=== PATIENT | male | born 1960 | race Caucasian/White ===

== ENCOUNTER 2022-06-16 16:16 | Emergency (ER) | payer OTHER ==
[~2022-06-16] VITALS: Ht 167.6 cm; Wt 81.7 kg
[~2022-06-16 16:16] MED LIST: Kristalose20 GM PO; NAPR550 PO
== END 2022-06-16 17:04 | disposition home or self-care (01) ==
LOC: ER 16:16
DX: M79.671 Pain in right foot (principal); I10 Essential (primary) hypertension; W22.8XXA Striking against or struck by other objects, initial encounter; Z79.899 Other long term (current) drug therapy; Z87.891 Personal history of nicotine dependence
CPT/HCPCS: 73630

== ENCOUNTER 2022-08-15 19:00 | Inpatient (IN) | payer OTHER ==
[~2022-08-15] VITALS: Ht 167.6 cm; Wt 86.2 kg
[2022-08-15 20:02] LABS: Influenza A, PCR NEGATIVE (NEGATIVE); Influenza B, PCR NEGATIVE (NEGATIVE); Resp Syncytial Virus, PCR NEGATIVE (NEGATIVE); SARS-Cov-2 (COVID-19) PCR, MMC NEGATIVE (NEGATIVE)
[2022-08-15 21:19] LABS: BASOPHILS ABSOLUTE AUTO 0.05 K/mm3 (0.00-0.23); BASOPHILS PERCENT AUTO 0 % (0-2); EOSINOPHILS ABSOLUTE AUTO 0.01 K/mm3 (0.00-0.68); EOSINOPHILS PERCENT AUTO 0 % (0-6); Hematocrit 48.1 % (37.0-53.0); Hemoglobin 16.2 g/dL (13.5-17.5); IMMATURE GRAN ABSOLUTE AUTO 0.06 K/mm3 (0.00-0.10); IMMATURE GRAN PERCENT AUTO 0 % (0-1); LYMPHOCYTES ABSOLUTE AUTO 1.38 K/mm3 (0.84-5.20); LYMPHOCYTES PERCENT AUTO 7 % (21-46); MONOCYTES ABSOLUTE AUTO 1.61 K/mm3 (0.16-1.47); MONOCYTES PERCENT AUTO 8 % (4-13); Mean Corpuscular HGB Conc 33.7 g/dL (31.5-36.5); Mean Corpuscular Volume 83 fL (80-100); Mean Platelet Volume 8.6 fL (9.1-12.4); NEUTROPHILS ABSOLUTE AUTO 17.17 K/mm3 (1.96-9.15); NEUTROPHILS PERCENT AUTO 85 % (41-73); Platelet Count 210 K/mm3 (150-400); RDW Coefficient Variation 13.1 % (11.7-14.2); Red Blood Cell Count 5.78 M/mm3 (4.30-5.90); White Blood Cell Count 20.28 K/mm3 (4.00-11.30)
[2022-08-15 21:38] LABS: Albumin, Blood 3.4 g/dL (3.4-5.0); Albumin/Globulin Ratio 0.9 (0.8-1.8); Bun/Creatinine Ratio 10.7 (12.0-20.0); Calcium, Blood 8.9 mg/dL (8.5-10.1); Creatinine, Blood 1.12 mg/dL (0.60-1.20); Globulin, Blood 3.9 g/dL (2.2-4.0); Potassium, Blood 3.6 mmol/L (3.5-5.5); Total Protein, Blood 7.3 g/dL (6.4-8.2)
[2022-08-15 22:41] LABS: Source, Urine Clean Catch
[2022-08-15 22:49] LABS: Appearance, Urine Clear (Clear); Bilirubin, Urine Neg (Neg); Blood, Urine Neg (Neg); Color, Urine Yellow (P-Yellow); Glucose Qualitative, Urine Neg (Neg); Ketones, Urine Neg (Neg); Leukocyte Esterase, Urine Neg (Neg); Nitrite, Urine Neg (Neg); Protein, Urine 1+ (Neg); Urobilinogen, Urine NORM (Normal)
[2022-08-16 01:25] VITALS: BP 138/69
--- NOTE | 2022-08-16 02:52 | NUR ---
08/16/22 0125 Patient was received from ED via stretcher to room 362. Patient is pleasant and alert and oriented x4. Patient complains mostly of lower back pain at this time. Pain to rt leg in minimal. Patient medicated with tylenol 650 mg with moderate relief. Pt has redness on front and side of rt daley with redness extending in streaks up to top of thigh. Note pictures in chart. Pt has rounded, sl firm abdomen with bowel tones faint but present. Pt had diarrhea last night to this am. Pt denies nausia states feels hungry but doesnt want to eat until breakfast. Patient voided in urinal. Pt receiving fluids. Pt has been oriented to is room and call light is in reach. WAiting for Tele monitor to be placed.
[2022-08-16 05:25] VITALS: BP 129/77
[2022-08-16 05:45] LABS: BASOPHILS ABSOLUTE AUTO 0.03 K/mm3 (0.00-0.23); BASOPHILS PERCENT AUTO 0 % (0-2); EOSINOPHILS ABSOLUTE AUTO 0.03 K/mm3 (0.00-0.68); EOSINOPHILS PERCENT AUTO 0 % (0-6); Hematocrit 44.2 % (37.0-53.0); Hemoglobin 15.2 g/dL (13.5-17.5); IMMATURE GRAN ABSOLUTE AUTO 0.06 K/mm3 (0.00-0.10); IMMATURE GRAN PERCENT AUTO 0 % (0-1); LYMPHOCYTES ABSOLUTE AUTO 1.35 K/mm3 (0.84-5.20); LYMPHOCYTES PERCENT AUTO 10 % (21-46); MONOCYTES ABSOLUTE AUTO 1.33 K/mm3 (0.16-1.47); MONOCYTES PERCENT AUTO 10 % (4-13); Mean Corpuscular HGB 28.8 pg (26.0-34.0); Mean Corpuscular HGB Conc 34.4 g/dL (31.5-36.5); Mean Corpuscular Volume 84 fL (80-100); Mean Platelet Volume 9.1 fL (9.1-12.4); NEUTROPHILS ABSOLUTE AUTO 10.83 K/mm3 (1.96-9.15); NEUTROPHILS PERCENT AUTO 80 % (41-73); Platelet Count 174 K/mm3 (150-400); RDW Coefficient Variation 13.1 % (11.7-14.2); RDW Standard Deviation 40.1 fL (35.1-46.3); Red Blood Cell Count 5.27 M/mm3 (4.30-5.90); White Blood Cell Count 13.63 K/mm3 (4.00-11.30)
--- NOTE | 2022-08-16 05:58 | NUR ---
Rn summary: Patient has been resting quietly. IV fluids continue. Pt voids in urinal. Plan for rt leg venous ultrasound for poss DVT. Call light in jreach. Continue to monitor.
[2022-08-16 06:19] LABS: Albumin, Blood 2.9 g/dL (3.4-5.0); Albumin/Globulin Ratio 0.8 (0.8-1.8); Bilirubin, Total 1.6 mg/dL (0.1-1.0); Bun/Creatinine Ratio 10.2 (12.0-20.0); Calcium, Blood 8.4 mg/dL (8.5-10.1); Creatinine, Blood 0.98 mg/dL (0.60-1.20); Globulin, Blood 3.6 g/dL (2.2-4.0); Potassium, Blood 3.3 mmol/L (3.5-5.5); Total Protein, Blood 6.5 g/dL (6.4-8.2)
[2022-08-16 08:16] VITALS: BP 124/75
[2022-08-16 15:52] VITALS: BP 129/74
--- NOTE | 2022-08-16 18:59 | NUR ---
SHIFT SUMMARY: PT IS A 62 YEAR OLD MALE A&OX4 ADMITTED ON 08/16/22 FOR CELLULITIS OF HIS R LOWER EXTREMITY. PT IS INDEPENDENT WITH AMUBULATION, BUT WILL USE BEDSIDE URINAL. HE C/O CHRONIC LOWER BACK PAIN. HAS AN IV DOSE OF TRAMADOL EARLIER TODAY AND PT RESPONDED WITH 0/10 PAIN AND STATED THAT HE FELT IF HE WAS FLOATING. 1800 DOSE OFFERED, PT DENIED. PAIN RELIEVED WITH AMBULATION AND HOT SHOWER. PT IS IN BED RESTING AT THIS TIME, CALL LIGHT IN REACH.
[2022-08-17 04:14] VITALS: BP 145/79
--- NOTE | 2022-08-17 04:16 | NUR ---
SHIFT ANGELINA, PT RESTING IN BED, MARKED RED AREA TO LEG WITH CELLULITUS. PER PT AND DAY RN REDNESS BETTER. PT GIVEN TORIDAL FOR PAIN AND PT SAYING HE HARDLY HAVING ANY PAIN AT THIS TIME. PT GIVEN A SANDWITCH BEFORE BED AND PT SEEMING TO SLEEP WELL THIS NIGHT. CALL LIGHT I9N REACH.
[2022-08-17 04:47] LABS: Hematocrit 46.6 % (37.0-53.0); Hemoglobin 15.7 g/dL (13.5-17.5); Mean Corpuscular HGB 28.5 pg (26.0-34.0); Mean Corpuscular HGB Conc 33.7 g/dL (31.5-36.5); Mean Corpuscular Volume 85 fL (80-100); Mean Platelet Volume 8.9 fL (9.1-12.4); Platelet Count 172 K/mm3 (150-400); RDW Coefficient Variation 13.1 % (11.7-14.2); RDW Standard Deviation 40.7 fL (35.1-46.3); White Blood Cell Count 10.99 K/mm3 (4.00-11.30)
[2022-08-17 05:13] LABS: Albumin, Blood 2.9 g/dL (3.4-5.0); Albumin/Globulin Ratio 0.7 (0.8-1.8); Bilirubin, Total 1.1 mg/dL (0.1-1.0); Bun/Creatinine Ratio 14.2 (12.0-20.0); Calcium, Blood 8.8 mg/dL (8.5-10.1); Creatinine, Blood 0.92 mg/dL (0.60-1.20); Magnesium, Blood 2.2 mg/dL (1.6-2.4); Potassium, Blood 3.6 mmol/L (3.5-5.5); Total Protein, Blood 6.9 g/dL (6.4-8.2)
[2022-08-17 07:42] VITALS: BP 144/86
--- NOTE | 2022-08-17 10:03 | NUR ---
GI PANEL CANCELLED PER UNIT PROTOCOL- PT HAS HAD NO LOOSE STOOLS SINCE ADMIT. STOOL THIS MORNING WAS SOFT AND FORMED, DOES NOT MEET CRITERIA FOR STOOL SAMPLE. CANCELLED ORDER PER PROTOCOL.
[2022-08-17 15:37] VITALS: BP 129/75
--- NOTE | 2022-08-17 17:30 | NUR ---
SHIFT SUMMARY: PT IS A 62 YR OLD MALE A&O X4, CONTINUING IV ANTIBIOTIC THERAPY FOR RLE CELLULITIS. REDNESS IMPROVED FROM YESTERDAY 08/16. PT DENIES PAIN IN THAT AREA AND AMBULATING OFTEN FOR PAIN RELIEF FOR CHRONIC LOWER BACK PAIN. TELE D/C'D TODAY IT WAS NO LONGER INDICATED. PLAN IS TO D/C TOMORROW 08/18. PT REMAINS PLEASANT, CALLS APPROPRIATELY, AND HE IS RESTING IN BED AT THIS TIME. MOVES INDEPENDENTLY IN HIS ROOM AND WILL GO ON [place] IN THE HALLWAY.
[2022-08-17 19:45] VITALS: BP 140/75
--- NOTE | 2022-08-18 03:41 | NUR ---
SHIFT SUMMERY, PT WENT TO SLEEP FAILY EARLY TONIGHT. PT APPEARS TO BE COMFORTABLE. PT AWKE EASILY WHEN 0000 MEDS WERE GIVEN. PT THEN QUITE QUICKLY FELL BACK TO SLEEP, CALL LIGHT IN REACH.
[2022-08-18 05:12] VITALS: BP 129/83
[2022-08-18 07:18] VITALS: BP 120/77
[2022-08-18] MEDS ORDERED: VISBIOME 112.51 EACH PO (11:38)
[2022-08-18] MEDS ORDERED: CEPH500 PO (11:39)
--- NOTE | 2022-08-18 11:51 | NUR ---
DISCHARGE NOTE- PT WAS GIVEN VERBAL AND WRITTEN DISCHARGE INSTRUCTIONS AND ACKNOWLEDGED UNDERSTANDING OF THEM. WATER REGULATOR AND VALVE REPAIRER KECIA DC'D THE IV PRIOR TO DISCHARGE. PT FAMILY AT THE BEDSIDE AT THE TIME OF DISCHARGE. MEDS FAXED TO [facility] PER THE PT REQUEST HIS PHARMACY ([facility]) IS NOT OPEN ON SUNDAYS. PT WAS ALREADY DRESSED IN HOME CLOTHING AT THE TIME OF DISCHARGE TEACHING. PT WAS ESCORTED OUT VIA WC BY WATER REGULATOR AND VALVE REPAIRER KECIA, NO S&S OF DISTRESS AT THE TME OF DISCHARGE.
== END 2022-08-18 11:58 | disposition home or self-care (01) | DRG 872 ==
LOC: ER 19:00 → MEDS 08-16 01:12
PROVIDERS: Internal Medicine; Student in an Organized Health Care Education/Training Program; ADMIT Internal Medicine
DX: A41.9 Sepsis, unspecified organism (principal); L03.115 Cellulitis of right lower limb; K76.0 Fatty (change of) liver, not elsewhere classified; K52.9 Noninfective gastroenteritis and colitis, unspecified; F17.210 Nicotine dependence, cigarettes, uncomplicated; F10.90 Alcohol use, unspecified, uncomplicated; E87.6 Hypokalemia; M79.604 Pain in right leg; Z20.822 Contact with and (suspected) exposure to COVID-19; Z88.0 Allergy status to penicillin; Z88.5 Allergy status to narcotic agent
CPT/HCPCS: 0241U; 36415; 74177; 80053; 83605; 83690; 83735; 83880; 85025; 85027; 87040; 93971; 96361; 96365-59; 96366; 96375; 99285-25; A9270; J0690; J1650; J1885; J3370; J7030; J7050; Q9967

== ENCOUNTER → 2022-10-07 | Outpatient (CLI) | payer OTHER ==
[~2022-10-07] MED LIST changes: +CEPH500 PO; +VISBIOME 112.51 EACH PO
[2022-10-07 08:22] LABS: Source, Urine Clean Catch
[2022-10-07 12:46] LABS: Appearance, Urine Turbid (Clear); Bilirubin, Urine Neg (Neg); Blood, Urine Neg (Neg); Color, Urine Yellow (P-Yellow); Glucose Qualitative, Urine Neg (Neg); Ketones, Urine Neg (Neg); Leukocyte Esterase, Urine Neg (Neg); Nitrite, Urine Neg (Neg); Protein, Urine 1+ (Neg); Specific Gravity, Urine 1.025 (1.003-1.022); Urobilinogen, Urine NORM (Normal)
[2022-10-07 14:05] LABS: Amorphous Heavy (0-Heavy); Bacteria Not Seen /hpf; Mucus Light (0-Heavy); Red Blood Cells, Urine Not Seen /hpf (0-2); Squamous Epithelial Cells Rare /hpf (Few); White Blood Cells, Urine Not Seen /hpf (0-5)
== END | disposition home or self-care (01) ==
LOC: LAB 06:30 → LAB SHORT 06:30
PROVIDERS: Nurse Practitioner Family
DX: Z00.00 Encounter for general adult medical examination without abnormal findings (principal)
CPT/HCPCS: 81001

== ENCOUNTER 2024-07-22 17:19 | Emergency (ER) | payer OTHER ==
[~2024-07-22] VITALS: Ht 167.6 cm; Wt 80.7 kg
[2024-07-22 18:00] LABS: BASOPHILS ABSOLUTE AUTO 0.04 K/mm3 (0.00-0.23); BASOPHILS PERCENT AUTO 0 % (0-2); EOSINOPHILS ABSOLUTE AUTO 0.28 K/mm3 (0.00-0.68); EOSINOPHILS PERCENT AUTO 3 % (0-6); Hematocrit 45.4 % (37.0-53.0); Hemoglobin 15.4 g/dL (13.5-17.5); IMMATURE GRAN ABSOLUTE AUTO 0.03 K/mm3 (0.00-0.10); IMMATURE GRAN PERCENT AUTO 0 % (0-1); LYMPHOCYTES ABSOLUTE AUTO 1.97 K/mm3 (0.84-5.20); LYMPHOCYTES PERCENT AUTO 20 % (21-46); MONOCYTES ABSOLUTE AUTO 0.96 K/mm3 (0.16-1.47); MONOCYTES PERCENT AUTO 10 % (4-13); Mean Corpuscular HGB 28.8 pg (26.0-34.0); Mean Corpuscular HGB Conc 33.9 g/dL (31.5-36.5); Mean Corpuscular Volume 85 fL (80-100); Mean Platelet Volume 8.5 fL (9.1-12.4); NEUTROPHILS ABSOLUTE AUTO 6.43 K/mm3 (1.96-9.15); NEUTROPHILS PERCENT AUTO 66 % (41-73); Platelet Count 202 K/mm3 (150-400); RDW Coefficient Variation 12.9 % (11.7-14.2); Red Blood Cell Count 5.34 M/mm3 (4.30-5.90); White Blood Cell Count 9.71 K/mm3 (4.00-11.30)
[2024-07-22 18:20] LABS: Albumin, Blood 3.7 g/dL (3.4-5.0); Albumin/Globulin Ratio 1.2 (0.8-1.8); Bilirubin, Total 0.7 mg/dL (0.1-1.0); Bun/Creatinine Ratio 17.8 (12.0-20.0); Calcium, Blood 9.4 mg/dL (8.5-10.1); Creatinine, Blood 1.01 mg/dL (0.60-1.20); Globulin, Blood 3.2 g/dL (2.2-4.0); Potassium, Blood 4.3 mmol/L (3.5-5.5); Total Protein, Blood 6.9 g/dL (6.4-8.2)
[2024-07-22 22:30] VITALS: BP 126/70
== END 2024-07-22 23:18 | disposition home or self-care (01) ==
LOC: ER 17:19
PROVIDERS: Emergency Medicine
DX: R55 Syncope and collapse (principal); R20.2 Paresthesia of skin; Z88.0 Allergy status to penicillin; Z88.5 Allergy status to narcotic agent; Z79.2 Long term (current) use of antibiotics; F17.210 Nicotine dependence, cigarettes, uncomplicated
CPT/HCPCS: 70450; 80053; 83880; 84484; 85025; 93005; 93010; 99284-25